=== PATIENT | male | born 1985 | race Two or more races ===

== ENCOUNTER 2017-01-30 21:32 | Emergency (ER) | payer OTHER ==
[2017-01-30] MEDS ORDERED: NS 1,000 ML IV ONE ×2 (21:40→22:04)
[2017-01-30] MEDS ORDERED: LORazepam 2 MG/ML INJ IVP ONE (21:42)
--- NOTE | 2017-01-30 21:42 | EDPHY ---
H & P Time Seen by Provider: 01/30/17 21:40 HPI/ROS: HPI: This is a 31-year-old male presents with Chief Complaint: Seizure x2 Location: body Quality: seizure Duration: Lasting between 10-15 minute Signs and Symptoms: No fever, no chills, no cough, no abdominal pain, no headache, no nausea, no vomiting Timing: Acute Severity: Moderate to severe Context: Patient is currently incarcerated since January 2016 is brought in via [facility] guards for witnessed grand mal seizure in his cell. He was found face down with tonic-clonic movements. Blood was noted around his mouth. No incontinence noted. Nurse reports that gabapentin was found this cell and she believes that he has not been taking his medications recently as prescribed. Patient placed in cervical collar and given Versed en route. Approximately 1 hr in the ER patient was more conversant. He reports that he has been on anti seizure medications since the age of 16. He has a history of 2 blunt force trauma to his head. No history of intracranial bleeding. He reports that he is on the maximum dose of gabapentin of 1200 mg 3 times daily. He denies noncompliance. He admits to arguing with a guard for over 4 hr. He saw an aura and had visual disturbances that is consistent with prior seizure activity. Modifying Factors: None Comment: ROS: Limited due to clinical condition MEDICAL/SURGICAL/SOCIAL HISTORY: PMHx: seizures d/t CHI, PTSD, marijuana use, peripheral neuropathy, suicide attempts via OD and hanging PSHx: facial reconstruction. Social history: Currently incarcerated. CONSTITUTIONAL: Postictal muscular male, awake and alert, no obvious distress HEENT: Atraumatic and normocephalic, PERRL, EOMI. Tympanic membranes clear. Oropharynx clear, no exudate and moist pink mucosa. Airway patent. No lymphadenopathy. No meningismus. Cardiovascular: Normal S1/S2, regular rate, regular rhythm, without murmur rub or gallop. PULMONARY/CHEST: Symmetrical and nontender. Clear to auscultation bilaterally. Good air movement. No accessory muscle usage. ABDOMEN: Soft, nondistended, nontender, no rebound, no guarding, no peritoneal signs, no masses or organomegaly. No CVAT. EXTREMITIES: 2/2 pulses, strength 5/5, no deformities, no clubbing, no cyanosis or edema. NEUROLOGICAL: Postictal. Follow simple commands. Speech somewhat delayed but answers appropriately. no focal neuro deficits. GCS 15. SKIN: Warm and dry, petechiae noted to upper torso anterior portion no erythema. Multiple tattoos noted over entire body. no rash. Good capillary refill. Source: Patient Exam Limitations: Clinical condition - Personal History Tetanus Vaccine Date: 2008 - Medical/Surgical History Hx Asthma: No Hx Chronic Respiratory Disease: No Hx Diabetes: No Hx Cardiac Disease: No Hx Renal Disease: No Hx Cirrhosis: No Hx Alcoholism: No Hx HIV/AIDS: No Hx Splenectomy or Spleen Trauma: No Other PMH: PMHx: seizures d/t CHI, PTSD, marijuana use, peripheral neuropathy, suicide attempts via OD and hanging. PSHx: facial reconstruction. - Social History Smoking Status: Current every day smoker Constitutional: Initial Vital Signs Temperature (C) 37.6 C 01/30/17 21:39 Heart Rate 76 01/30/17 21:39 Respiratory Rate 16 01/30/17 21:39 Blood Pressure 146/94 H 01/30/17 21:39 O2 Sat (%) 96 01/30/17 21:39 O2 Delivery Mode Room Air Allergies/Adverse Reactions: risperidone [From Risperdal] Allergy (Intermediate, Verified 01/30/17 21:38) Other-Enter Comments Home Medications: Medication Instructions Recorded buPROPion SR [Wellbutrin 150mg SR 150 mg PO BID@08,12 09/02/15 (*)] ALPRAZolam 02/10/16 Gabapentin [Neurontin] 1,200 mg PO TID 02/10/16 QUEtiapine FUMARATE [Seroquel 100 100 mg PO DAILY 02/10/16 mg (*)] ALPRAZolam [Xanax 0.5 MG (*)] 0.5 mg PO BID PRN #14 tab 02/11/16 Bupropion HCl [Wellbutrin Xl] 300 mg PO DAILY #7 tab.er.24h 02/11/16 Gabapentin [Neurontin 300 MG (*)] 300 mg PO TID #21 cap 02/11/16 Medical Decision Making - Diagnostics Imaging Results: Imaging Impressions Cervical Spine CT 01/30/17 22:05 Impression: There is no acute intracranial abnormality identified on this unenhanced CT evaluation. UNENHANCED CT SCAN OF THE CERVICAL SPINE Technique: A multidetector unenhanced helical CT scan was obtained from the clivus caudally through the upper thoracic spine, with images reformatted at 1.50 mm increments, and are reviewed in soft tissue, bone, and lung windows. Parasagittal and paracoronal reconstructed images are reviewed on the workstation. The DFOV is 15.1 cm. A dose reduction protocol was used. Findings: The cervical vertebral body heights, posterior alignments, and the disk spaces are preserved. There is no acute fracture, or facet malalignment. The interspinous distances are normal. The craniocervical junction is normal. The predental space, and the atlantoaxial lateral mass alignment is normal. The base and the tip of the dens are normal. There is no central canal stenosis, neural foraminal impingement, or focal disk herniation identified. There is no paravertebral or epidural hematoma identified. The prevertebral soft tissues are notable for a left thyroid hypodense nodule currently measuring 6 x 8 mm, previously measuring 4 x 6 mm one year ago. Consider follow-up sonography in 6- 12 months. Impression: 1. Normal unenhanced CT scan of the cervical spine. 2. Marginal interval increase in the size of a subcentimeter left thyroid lobe nodule. Consider follow-up sonographic reevaluation in 6-12 months. If there is further clinical concern regarding the patient's symptoms, correlative MR imaging could be considered, if otherwise not contraindicated. Findings were discussed with Ann Carvalho PA-C at 23:01, on 01/30/2017. Chest CT 01/30/17 22:05 Impression: No acute abnormality. Findings were discussed with Ann Carvalho PA-C at 23:09, on 01/30/2017. Head CT 01/30/17 22:05 Impression: There is no acute intracranial abnormality identified on this unenhanced CT evaluation. UNENHANCED CT SCAN OF THE CERVICAL SPINE Technique: A multidetector unenhanced helical CT scan was obtained from the clivus caudally through the upper thoracic spine, with images reformatted at 1.50 mm increments, and are reviewed in soft tissue, bone, and lung windows. Parasagittal and paracoronal reconstructed images are reviewed on the workstation. The DFOV is 15.1 cm. A dose reduction protocol was used. Findings: The cervical vertebral body heights, posterior alignments, and the disk spaces are preserved. There is no acute fracture, or facet malalignment. The interspinous distances are normal. The craniocervical junction is normal. The predental space, and the atlantoaxial lateral mass alignment is normal. The base and the tip of the dens are normal. There is no central canal stenosis, neural foraminal impingement, or focal disk herniation identified. There is no paravertebral or epidural hematoma identified. The prevertebral soft tissues are notable for a left thyroid hypodense nodule currently measuring 6 x 8 mm, previously measuring 4 x 6 mm one year ago. Consider follow-up sonography in 6- 12 months. Impression: 1. Normal unenhanced CT scan of the cervical spine. 2. Marginal interval increase in the size of a subcentimeter left thyroid lobe nodule. Consider follow-up sonographic reevaluation in 6-12 months. If there is further clinical concern regarding the patient's symptoms, correlative MR imaging could be considered, if otherwise not contraindicated. Findings were discussed with Ann Carvalho PA-C at 23:01, on 01/30/2017. ED Course/Re-evaluation: Head CT scan, cervical CT scan, CT chest, IV fluids, IV medication, labs, UDS ordered It appears the patient has been noncompliant on his seizure medications and have had a breakthrough seizure. Bolus with IV Keppra [address] Yuan who advises head CT scan shows no acute intracranial process, CT cervical scan shows no acute fracture/disc herniation. CT chest shows no acute pulmonary abnormality. Labs reviewed and grossly unremarkable. Reassessed patient who is GCS 15 without neurological deficit. While in the emergency room for approximately 4 hr, no seizure activity noted. Patient is medically clear for discharge back to assisted. This patient was seen under the supervision of my secondary supervising physician. I evaluated care for this patient independently. Discussed this patient with Dr. Katz who did not see the patient. Patient's presentation, labs /imaging, treatment and plan of care were discussed with secondary supervising physician. Differential Diagnosis: Seizure including but not limited to electrolyte abnormality, alcohol withdrawal , medication noncompliance, head injury, and breakthrough seizure. - Data Points Laboratory Results: Laboratory Results 01/30/17 21:48 01/30/17 21:48 12/13/17 12/13/17 12/13/17 21:48 21:48 21:48 WBC RBC Hgb Hct MCV MCH MCHC RDW Plt Count MPV Neut % (Auto) Lymph % (Auto) [place] % (Auto) Eos % (Auto) Baso % (Auto) Nucleat RBC Rel Count Absolute Neuts (auto) Absolute Lymphs (auto) Absolute Monos (auto) Absolute Eos (auto) Absolute Basos (auto) Absolute Nucleated RBC Immature Gran % Immature Gran # PT 13.4 SEC SEC (12.0-15.0) INR 1.00 (0.83-1.16) APTT 28.6 SEC SEC (23.0-38.0) Sodium 140 mEq/L mEq/L (134-144) Potassium 4.3 mEq/L mEq/L (3.5-5.2) Chloride 102 mEq/L mEq/L (97-110) Carbon Dioxide 21 mEq/l L mEq/l (22-31) Anion Gap 17 mEq/L H mEq/L (8-16) BUN 15 mg/dL mg/dL (7-23) Creatinine 1.1 mg/dL mg/dL (0.7-1.3) Estimated GFR > 60 Glucose 106 mg/dL H mg/dL (70-100) Calcium 9.8 mg/dL mg/dL (8.5-10.4) Total Bilirubin 0.6 mg/dL mg/dL (0.1-1.4) Conjugated Bilirubin 0.3 mg/dL mg/dL (0.0-0.5) Unconjugated Bilirubin 0.3 mg/dL mg/dL (0.0-1.1) AST 30 IU/L IU/L (17-59) ALT 30 IU/L IU/L (21-72) Alkaline Phosphatase 77 IU/L IU/L (38-126) Creatine Kinase 275 IU/L H IU/L (0-224) CK-MB (CK-2) Fraction 3.42 ng/mL H ng/mL (0.00-3.19) CK-MB (CK-2) % 1.2 % % (0.0-4.0) Creatine Kinase Interp NEGATIVE (NEGATIVE) Troponin I < 0.012 ng/mL ng/mL (0.000-0.034) Total Protein 7.8 g/dL g/dL (6.3-8.2) Albumin 4.9 g/dL g/dL (3.5-5.0) 01/30/17 21:48 WBC 6.48 10^3/uL 10^3/uL (3.80-9.50) RBC 5.09 10^6/uL 10^6/uL (4.40-6.38) Hgb 16.1 g/dL g/dL (13.7-17.5) Hct 45.2 % % (40.0-51.0) MCV 88.8 fL fL (81.5-99.8) MCH 31.6 pg pg (27.9-34.1) MCHC 35.6 g/dL g/dL (32.4-36.7) RDW 12.3 % % (11.5-15.2) Plt Count 200 10^3/uL 10^3/uL (150-400) MPV 12.0 fL H fL (8.7-11.7) Neut % (Auto) 49.9 % % (39.3-74.2) Lymph % (Auto) 42.9 % % (15.0-45.0) [place] % (Auto) 5.7 % % (4.5-13.0) Eos % (Auto) 0.8 % % (0.6-7.6) Baso % (Auto) 0.5 % % (0.3-1.7) Nucleat RBC Rel Count 0.0 % % (0.0-0.2) Absolute Neuts (auto) 3.24 10^3/uL 10^3/uL (1.70-6.50) Absolute Lymphs (auto) 2.78 10^3/uL 10^3/uL (1.00-3.00) Absolute Monos (auto) 0.37 10^3/uL 10^3/uL (0.30-0.80) Absolute Eos (auto) 0.05 10^3/uL 10^3/uL (0.03-0.40) Absolute Basos (auto) 0.03 10^3/uL 10^3/uL (0.02-0.10) Absolute Nucleated RBC 0.00 10^3/uL 10^3/uL (0-0.01) Immature Gran % 0.2 % % (0.0-1.1) Immature Gran # 0.01 10^3/uL 10^3/uL (0.00-0.10) PT INR APTT Sodium Potassium Chloride Carbon Dioxide Anion Gap BUN Creatinine Estimated GFR Glucose Calcium Total Bilirubin Conjugated Bilirubin Unconjugated Bilirubin AST ALT Alkaline Phosphatase Creatine Kinase CK-MB (CK-2) Fraction CK-MB (CK-2) % Creatine Kinase Interp Troponin I Total Protein Albumin Medications Given: Discontinued Medications Sodium Chloride (Ns) 1,000 mls @ 0 mls/hr IV ONCE ONE; Wide Open PRN Reason: Protocol Stop: 01/30/17 21:41 Last Admin: 01/30/17 22:01 Dose: 1,000 mls Levetiracetam 1,000 mg/ Sodium (Chloride) 110 mls @ 440 mls/hr IV EDNOW ONE Stop: 01/30/17 22:11 Last Admin: 01/30/17 23:19 Dose: 110 mls Departure - Departure Disposition: Law Enforcement/Court/Group Home Clinical Impression: Seizure disorder, Noncompliance with medication regimen Condition: Good Instructions: Recurrent Seizures in Adults (ED) Additional Instructions: You have been medically cleared to return to assisted. Please be compliant in taking your seizure medications. Drink plenty of fluids and rest over the next 24 hr. Referrals: Tien Borjas, [Medical Doctor] - As per Instructions [facility],. [Clinic] - As per Instructions
[2017-01-30 21:44] VITALS: RESP 16; O2SAT 96
[2017-01-30 21:58] LABS: % IMMATURE GRANULYOCYTES 0.2 % (0.0-1.1); ABSOLUTE IMMATURE GRANULOCYTES 0.01 10^3/uL (0.00-0.10); ADD DIFF? NO; ADD MORPH? NO; ADD SCAN? NO; ATYPICAL LYMPHOCYTE FLAG 0 (0-99); FRAGMENT RBC FLAG 0 (0-99); HEMATOCRIT 45.2 % (40.0-51.0); HEMOGLOBIN 16.1 g/dL (13.7-17.5); LEFT SHIFT FLG 0 (0-99); LIPEMIA HEMOLYSIS FLAG 90 (0-99); MEAN CELL HEMOGLOBIN 31.6 pg (27.9-34.1); MEAN CELL HEMOGLOBIN CONCENTR. 35.6 g/dL (32.4-36.7); MEAN CELL VOLUME 88.8 fL (81.5-99.8); PLATELET CLUMPS FLAG 0 (0-99); PLATELET COUNT 200 10^3/uL (150-400); RED BLOOD CELL COUNT 5.09 10^6/uL (4.40-6.38); RED CELL DISTRIBUTION WIDTH 12.3 % (11.5-15.2)
[2017-01-30 22:02] LABS: ANION GAP 17 mEq/L (8-16); CALCIUM 9.8 mg/dL (8.5-10.4); CARBON DIOXIDE 21 mEq/l (22-31); CHLORIDE 102 mEq/L (97-110); CREATININE 1.1 mg/dL (0.7-1.3); GLOMERULAR FILTRATION RATE > 60; GLUCOSE 106 mg/dL (70-100); POTASSIUM 4.3 mEq/L (3.5-5.2); SODIUM 140 mEq/L (134-144)
[2017-01-30] MEDS ORDERED: IOPAMIDOL (ISOVUE-300) 100 ML BTL ONE (22:10)
[2017-01-30 22:21] LABS: APTT 28.6 SEC (23.0-38.0); PROTIME(PATIENT) 13.4 SEC (12.0-15.0)
[2017-01-30 22:30] LABS: ALANINE AMINOTRANSFERASE 30 IU/L (21-72); ALBUMIN 4.9 g/dL (3.5-5.0); ALKALINE PHOSPHATASE 77 IU/L (38-126); ASPARTATE AMINOTRANSFERASE 30 IU/L (17-59); BILIRUBIN,TOTAL 0.6 mg/dL (0.1-1.4); BILIRUBIN-CONJUGATED 0.3 mg/dL (0.0-0.5); BILIRUBIN-UNCONJUGATED 0.3 mg/dL (0.0-1.1); TOTAL PROTEIN 7.8 g/dL (6.3-8.2)
[2017-01-30 22:40] LABS: TROPONIN I < 0.012 ng/mL (0.000-0.034)
[2017-01-30] MEDS: levETIRAcetam 1,000 MG in NS 100 ML IV ONE ×2 (22:43→23:19)
[2017-01-30 23:07] LABS: CK-MB INTERPRETATION NEGATIVE (NEGATIVE)
[2017-01-30 23:08] LABS: CREATINE KINASE-MB FRACTION 3.42 ng/mL (0.00-3.19)
[2017-01-31] MEDS ORDERED: ACETAMINOPHEN 500 MG TAB PO ONE (00:02)
[2017-01-31] MEDS ORDERED: ACETAMINOPHEN 500 MG TAB ONE (00:02)
[2017-01-31 00:15] VITALS: BP 134/74; PULSE 74; TEMP 97.9
== END 2017-01-31 00:15 ==
LOC: EDUNIT#
DX: G40.909 Epilepsy, unspecified, not intractable, without status epilepticus (principal); E86.9 Volume depletion, unspecified; Z91.14 Patient's other noncompliance with medication regimen; F17.200 Nicotine dependence, unspecified, uncomplicated
CPT/HCPCS: 96365; J1953; Q9967

== ENCOUNTER 2017-03-17 23:21 | Emergency (ER) | payer OTHER ==
--- NOTE | 2017-03-17 23:40 | EDPHY ---
H & P Stated Complaint: Seizure, hit head, superficial head laceration HPI/ROS: Chief Complaint: Seizure, head injury HPI: 32-year-old male with a known seizure history, on Keppra, gabapentin and Wellbutrin. Patient was in [facility] today when he had a witnessed tonic-clonic seizure. He was given 1 mg of Ativan IM. Patient is now postictal. He did fall on his head and has laceration above his left eyebrow. Patient is mildly confused at this time. No nausea or vomiting. Is complaining some mild headache. No nausea or vomiting. Denies any other recent traumas. ROS: 10 point Review of Systems is negative except as noted in the HPI. PMH: Seizure disorder Medications: Keppra, gabapentin, Wellbutrin Social History: No smoking Family History: non-contributory Physical Exam: Gen: Awake, Alert, mildly confused, Airway intact HEENT: Head: 2 small abrasions above his left eyebrow, no bony tenderness or crepitus Eyes: PERRLA, EOMI Nose: No epistaxis Mouth: Normal dentition, Airway patent Face: No deformity Neck: non-tender, no stepoff, Full ROM without pain Chest: non-tender, lungs CTA Heart: normal heart tones Abd: soft, non-tender, atraumatic Pelvis: non-tender, stable to AP and Lateral compression Back: atraumatic, no midline tenderness Ext: atramatic, full ROM Skin: no rash Neuro: CN II-XII intact, Strength 5/5 in all extremities, sensation intact in all extremities - Personal History Current Tetanus Diphtheria and Acellular Pertussis (TDAP): Yes Tetanus Vaccine Date: 2008 - Medical/Surgical History Hx Asthma: No Hx Chronic Respiratory Disease: No Hx Diabetes: No Hx Cardiac Disease: No Hx Renal Disease: No Hx Cirrhosis: No Hx Alcoholism: No Hx HIV/AIDS: No Hx Splenectomy or Spleen Trauma: No Other PMH: PMHx: seizures d/t CHI, PTSD, marijuana use, peripheral neuropathy, suicide attempts via OD and hanging. PSHx: facial reconstruction. - Social History Smoking Status: Current every day smoker Constitutional: Initial Vital Signs Temperature (C) 36.7 C 03/17/17 23:27 Heart Rate 80 03/17/17 23:27 Respiratory Rate 20 03/17/17 23:27 Blood Pressure 126/78 H 03/17/17 23:27 O2 Sat (%) 97 03/17/17 23:27 O2 Delivery Mode Room Air Allergies/Adverse Reactions: risperidone [From Risperdal] Allergy (Intermediate, Verified 03/17/17 23:26) Other-Enter Comments Home Medications: Medication Instructions Recorded buPROPion SR [Wellbutrin 150mg SR 150 mg PO BID@08,12 09/02/15 (*)] ALPRAZolam 02/10/16 Gabapentin [Neurontin] 1,200 mg PO TID 02/10/16 QUEtiapine FUMARATE [Seroquel 100 100 mg PO DAILY 02/10/16 mg (*)] ALPRAZolam [Xanax 0.5 MG (*)] 0.5 mg PO BID PRN #14 tab 02/11/16 Bupropion HCl [Wellbutrin Xl] 300 mg PO DAILY #7 tab.er.24h 02/11/16 Gabapentin [Neurontin 300 MG (*)] 300 mg PO TID #21 cap 02/11/16 Medical Decision Making - Diagnostics Imaging Results: Imaging Impressions Cervical Spine CT 03/17/17 23:56 Impression: Grossly stable motion limited study with no acute posttraumatic abnormality identified. If symptoms persist and clinical suspicion warrants, consider MRI. Findings discussed with Tien Willis MD 03/18/2017 at 0:16. ED Course/Re-evaluation: 32-year-old male with a known seizure disorder who had a breakthrough seizure in [facility]. Patient sustained a laceration to his head. CT scan of his head and cervical spine are unremarkable. Of note the patient is taking Wellbutrin. This is an inappropriate medication for this patient as a can lower your seizure threshold and cause seizures. I would recommend that the patient discontinue taking Wellbutrin and he should be switch to an alternative agent. Departure - Departure Disposition: Home, Routine, Self-Care Clinical Impression: Seizure, Abrasion Condition: Good Instructions: Epilepsy (ED) Additional Instructions: PLEASE DISCONTINUE USING WELLBUTRIN. THIS MEDICATION CAN INCREASE YOUR RISK OF SEIZURES. Return to the emergency department for increasing seizure activity, nausea, vomiting, chest pain, shortness of breath, or any other concerns. MEDICALLY CLEAR FOR [facility] Referrals: Patient,NotPresent [Unknown] - As per Instructions
[2017-03-18 00:38] VITALS: BP 116/78; PULSE 71; RESP 18; TEMP 97.9; O2SAT 95
== END 2017-03-18 00:39 | disposition home or self-care (01) ==
LOC: EDUNIT# → EEVIPCON 23:21
DX: S00.212A Abrasion of left eyelid and periocular area, initial encounter (principal); G40.909 Epilepsy, unspecified, not intractable, without status epilepticus; F17.200 Nicotine dependence, unspecified, uncomplicated; W19.XXXA Unspecified fall, initial encounter; Y92.149 Unspecified place in prison as the place of occurrence of the external cause